=== PATIENT | male | born 1955 | race Caucasian/White ===

== ENCOUNTER 2017-04-04 11:11 | Emergency (ER) | payer MEDICARE ==
[~2017-04-04] VITALS: Wt 149.7 kg
[~2017-04-04 11:11] MED LIST: ACETAMINOPHEN; ADVAIR 100/501 E1 INH; AMBIEN10 MG PO; AMBIEN5 MG PO; FLEXERIL5 MG PO; FLUTICASONE; HYDRO; PENICILLIN VK500 MG PO; SALMETEROL; TRAMADOL HCL50 MG PO; ULTRAM50 MG PO; VENTOLIN0.09 MG/AC PO; VICODIN 5/500 505 MG PO; VICODIN ES 7501 TA1 PO; VICODIN ES 7501 TAB PO; ZOLOFT50 MG PO
[2017-04-04 13:18] VITALS: BP 160/88
== END 2017-04-04 13:24 | disposition short-term general hospital (02) ==
LOC: ED 11:11
DX: S06.350A Traumatic hemorrhage of left cerebrum without loss of consciousness, initial encounter (principal); F10.10 Alcohol abuse, uncomplicated; Z79.899 Other long term (current) drug therapy; W19.XXXA Unspecified fall, initial encounter; Y93.89 Activity, other specified; Y92.89 Other specified places as the place of occurrence of the external cause; Y99.8 Other external cause status

== ENCOUNTER → 2021-04-09 | Outpatient (CLI) | payer OTHER | END | disposition home or self-care (01) | LOC: MRI 14:00 | PROVIDERS: ATTEND Nurse Practitioner Family | DX: S83.242A Other tear of medial meniscus, current injury, left knee, initial encounter (principal); M84.359A Stress fracture, hip, unspecified, initial encounter for fracture; M25.462 Effusion, left knee; X58.XXXA Exposure to other specified factors, initial encounter; Y93.89 Activity, other specified; Y92.89 Other specified places as the place of occurrence of the external cause; Y99.8 Other external cause status ==

== ENCOUNTER → 2021-06-14 | Outpatient (CLI) | payer OTHER | END | disposition home or self-care (01) | LOC: MRI 12:48 | PROVIDERS: ATTEND Nurse Practitioner Family | DX: M17.0 Bilateral primary osteoarthritis of knee (principal); M60.862 Other myositis, left lower leg ==